=== PATIENT | male | born 1975 | race African-American/Black ===

== ENCOUNTER 2016-09-05 14:00 | Emergency (ER) | payer SELFPAY ==
[~2016-09-05] VITALS: Ht 180.3 cm; Wt 60.0 kg
[~2016-09-05 14:00] MED LIST: LISI-360 PO; LORTA5 PO; TRAM50TA PO
[2016-09-05 14:03] VITALS: BP 168/104; PULSE 84; RESP 16; TEMP 97.7; O2SAT 98
[2016-09-05] MEDS ORDERED: SODIUM CHLOR 0.9% 1000 ML INJ 1,000 ML IV SCH (14:58)
[2016-09-05] MEDS ORDERED: ONDANSETRON HCL 4 MG/2 ML VIAL IVP ONE (15:00)
[2016-09-05] MEDS ORDERED: SODIUM CHLORIDE 0.9% FLUSH 5 ML FLUSH IVF PRN (15:00)
[2016-09-05] MEDS ORDERED: MORPHINE SULFATE 4 MG/ML INJ IV PUSH ONE (15:00)
--- NOTE | 2016-09-05 15:53 | PD ---
HPI Chief Complaint: Abdominal Pain Time Seen by Provider: 14:52 Travel History International Travel<30 days: No Contact w/Intl Traveler<30days: No Traveled to known affect area: No History of Present Illness HPI 41-year-old male came to the emergency room with history of left lower quadrant pain. Patient had a hernia surgery done on that side about 8 months ago. Says the pain started 2 days ago and yesterday he had 2 episodes of vomiting. 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 Vital signs were stable otherwise. No history of diarrhea. Vitals are stable. [facility] Past Medical History Narrative Medical List of his past medical history is reviewed from the nursing note. Cancer: No Cardiovascular Problems: Yes (htn) Cerebrovascular Accident: No Diabetes: No Diminished Hearing: No Gastrointestinal Disorders: Yes (INGUINAL HERNIA A CHILD) Genitourinary: No Hypertension: Yes Implanted Vascular Access Dvce: No Musculoskeletal: Yes (RIGHT FA SX, LFT LEG SX) Neurologic: No Psychiatric: No Reproductive: No Respiratory: No Immunizations Current: No Myocardial Infarction: No Thyroid Disease: Yes Past Surgical History Abdominal Surgery: Yes (INGUINAL HERNIA REPAIR) Other Surgery: Yes (R FOREARM SX, L LEG SX,) Social History Alcohol Use: No (QUIT NOVEMBER) Tobacco Use: No ( ) Substance Use: Yes (MARIJUANA DAILY ECSTASY) Allergies-Medications (Allergen,Severity, Reaction): Coded Allergies: No Known Allergies (Verified , 02/18/16) Comments No known allergies. Reported Meds & Prescriptions Reported Meds & Active Scripts Active Ibuprofen 600 Mg Tab 600 Mg PO Q6H PRN Tramadol Hcl (Tramadol HCl) 50 Mg Tab 50 Mg PO Q4H PRN Hydrocodone/Acetaminophen 5 mg/325 mg 1 Tab 1-2 Tab PO Q4H PRN Reported Lisinopril 10 mg (Lisinopril) 10 Mg Tab 10 Mg PO DAILY Narrative Medication List of his home medications reviewed from the nursing note. Review of Systems Except as stated in HPI: all other systems reviewed are Neg Physical Exam Narrative GENERAL: Awake, alert, moderate distress SKIN: Warm and dry. HEAD: Atraumatic. Normocephalic. EYES: Pupils equal and round. No scleral icterus. No injection or drainage. ENT: No nasal bleeding or discharge. Mucous membranes pink and moist. NECK: Trachea midline. No JVD. CARDIOVASCULAR: Regular rate and rhythm. No murmur appreciated. RESPIRATORY: No accessory muscle use. Clear to auscultation. Breath sounds equal bilaterally. GASTROINTESTINAL: Abdomen soft, tender left lower quadrant mainly over the hernia scar to slightest touch, nondistended. Hepatic and splenic margins not palpable. MUSCULOSKELETAL: No obvious deformities. No clubbing. No cyanosis. No edema. NEUROLOGICAL: Awake and alert. No obvious cranial nerve deficits. Motor grossly within normal limits. Normal speech. PSYCHIATRIC: Appropriate mood and affect; insight and judgment normal. Data Data Last Documented VS Vital Signs Date Time Temp Pulse Resp B/P Pulse Ox O2 Delivery O2 Flow Rate FiO2 09/05/16 19:00 55 17 143/96 100 Room Air 09/05/16 14:03 97.7 Orders Complete Blood Count With Diff (09/05/16 14:58) Comprehensive Metabolic Panel (09/05/16 14:58) Lipase (09/05/16 14:58) Urinalysis - C+S If Indicated (09/05/16 14:58) Ct Abd/Pel W Iv Contrast(Rout) (09/05/16 14:58) Iv Access Insert/Monitor (09/05/16 14:58) Ecg Monitoring (09/05/16 14:58) Oximetry (09/05/16 14:58) Morphine Inj (Morphine Inj) (09/05/16 15:00) Ondansetron Inj (Zofran Inj) (09/05/16 15:00) Sodium Chlor 0.9% 1000 Ml Inj (Ns 1000 M (09/05/16 14:58) Sodium Chloride 0.9% Flush (Ns Flush) (09/05/16 15:00) Oral Contrast - Adult (09/05/16 15:04) Diatrizoate Liq ( Gastroview Liq) (09/05/16 17:12) Iohexol 350 Inj (Omnipaque 350 Inj) (09/05/16 18:49) Labs Laboratory Tests Test 09/05/16 09/05/16 15:30 15:55 Urine Color LIGHT-YELLOW Urine Turbidity CLEAR Urine pH 6.5 Urine Specific [place] 1.012 Urine Protein NEG mg/dL Urine Glucose (UA) NEG mg/dL Urine Ketones NEG mg/dL Urine Occult Blood NEG Urine Nitrite NEG Urine Bilirubin NEG Urine Urobilinogen LESS THAN 2.0 MG/DL Urine Leukocyte Esterase SMALL Urine RBC 1 /hpf Urine WBC 4 /hpf Urine Squamous Epithelial <1 /hpf Cells Urine Bacteria RARE /hpf Urine Mucus FEW /lpf Microscopic Urinalysis Comment CULT NOT INDICATED White Blood Count 4.9 TH/MM3 Red Blood Count 5.12 MIL/MM3 Hemoglobin 14.4 GM/DL Hematocrit 44.4 % Mean Corpuscular Volume 86.7 FL Mean Corpuscular Hemoglobin 28.2 PG Mean Corpuscular Hemoglobin 32.5 % Concent Red Cell Distribution Width 13.6 % Platelet Count 159 TH/MM3 Mean Platelet Volume 8.6 FL Neutrophils (%) (Auto) 47.3 % Lymphocytes (%) (Auto) 42.1 % Monocytes (%) (Auto) 8.4 % Eosinophils (%) (Auto) 1.1 % Basophils (%) (Auto) 1.1 % Neutrophils # (Auto) 2.3 TH/MM3 Lymphocytes # (Auto) 2.1 TH/MM3 Monocytes # (Auto) 0.4 TH/MM3 Eosinophils # (Auto) 0.1 TH/MM3 Basophils # (Auto) 0.1 TH/MM3 CBC Comment DIFF FINAL Differential Comment Sodium Level 141 MEQ/L Potassium Level 3.7 MEQ/L Chloride Level 110 MEQ/L Carbon Dioxide Level 22.2 MEQ/L Anion Gap 9 MEQ/L Blood Urea Nitrogen 12 MG/DL Creatinine 1.00 MG/DL Estimat Glomerular Filtration 101 ML/MIN Rate Random Glucose 87 MG/DL Calcium Level 9.0 MG/DL Total Bilirubin 0.6 MG/DL Aspartate Amino Transf 20 U/L (AST/SGOT) Alanine Aminotransferase 19 U/L (ALT/SGPT) Alkaline Phosphatase 60 U/L Total Protein 7.7 GM/DL Albumin 4.2 GM/DL Lipase 318 U/L [facility] Medical Decision Making Medical Screen Exam Complete: Yes Emergency Medical Condition: Yes Medical Record Reviewed: Yes Differential Diagnosis Recurrent inguinal hernia, diverticulitis, abdominal pain NOS Narrative Course 3:53 PM awaiting for the blood test results and the CAT scan to be done and resulted. Patient has been given pain medication and IV fluid bolus. 6:05 PM all the blood test results of back and within normal limit. Awaiting for the CAT scan to be done and resulted. 7:[address] scan report is back and essentially within normal limits with no acute changes. Procedures EKG Prior to Arrival: No Diagnosis Primary Impression: Abdominal wall strain Qualified Code: S39.011A - Abdominal wall strain, initial encounter Referrals: Primary Care Physician 1 week Additional Instructions: Do not lift heavy weight for the next one week. Take Motrin/Tylenol for the pain. Follow-up with your primary care. Med/Other Pt SpecificInfo: Prescription(s) given, No Change to Meds Scripts Ibuprofen 600 Mg [id number] Mg PO Q6H PRN (pain) #20 TAB Ref 0 Prov:Tyrell Delgado MD 09/05/16 Disposition: 01 DISCHARGE HOME Condition: Stable Tyrell Delgado MD Sep 05, 2016 15:53 Tyrell Delgado MD Sep 05, 2016 15:53
[2016-09-05 16:12] LABS: AUTOMATED NEUTROPHIL # 2.3 TH/MM3 (1.8-7.7); BASOPHIL # 0.1 TH/MM3 (0-0.2); BASOPHIL % 1.1 % (0.0-2.0); EOSINOPHIL # 0.1 TH/MM3 (0-0.4); EOSINOPHIL % 1.1 % (0.0-4.0); HEMATOCRIT 44.4 % (39.0-51.0); HEMO FLAGS DIFF FINAL; LYMPH % 42.1 % (9.0-44.0); LYMPHOCYTE # 2.1 TH/MM3 (1.0-4.8); MEAN CELL VOLUME 86.7 FL (80.0-100.0); MEAN CORPUSCULAR HEMOGLOBIN 28.2 PG (27.0-34.0); MEAN CORPUSCULAR HGB CONC 32.5 % (32.0-36.0); MONO % 8.4 % (0.0-8.0); NEUT % 47.3 % (16.0-70.0); PLATELET COUNT 159 TH/MM3 (150-450); RED BLOOD COUNT 5.12 MIL/MM3 (4.50-5.90); RED CELL DISTRIBUTION WIDTH 13.6 % (11.6-17.2); WHITE BLOOD COUNT 4.9 TH/MM3 (4.0-11.0)
[2016-09-05 16:21] LABS: BACTERIA, URINE RARE /hpf; BLOOD, URINE NEG (NEG); COMMENT (UR) CULT NOT INDICATED; CULTURE IF INDICATED CULT NOT INDICATED; GLUCOSE,URINE NEG (NEG); KETONE, URINE NEG (NEG); MUCUS URINE FEW /lpf (OCC); NITRITE,URINE NEG (NEG); PH, URINE 6.5 (5.0-8.5); SQUAMOUS EPITHELIAL CELL URINE <1 /hpf (0-5); URINE COLOR LIGHT-YELLOW (YELLW/STRAW)
[2016-09-05 16:29] LABS: ALT (GPT) 19 U/L (12-78); ANION GAP 9 MEQ/L (5-15); AST (GOT) 20 U/L (15-37); BICARBONATE 22.2 MEQ/L (21.0-32.0); BLOOD UREA NITROGEN 12 MG/DL (7-18); CHLORIDE 110 MEQ/L (98-107); GLOMERULAR FILTRATION RATE 101 ML/MIN (>89); POTASSIUM 3.7 MEQ/L (3.5-5.1); SODIUM (NA) 141 MEQ/L (136-145)
[2016-09-05 16:32] LABS: ALKALINE PHOSPHATASE 60 U/L (45-117); TOTAL BILIRUBIN ADULT 0.6 MG/DL (0.2-1.0)
[2016-09-05 17:00] VITALS: BP 152/86; PULSE 50; RESP 16; O2SAT 98
[2016-09-05 17:05] VITALS: O2SAT 98
[2016-09-05] MEDS ORDERED: DIATRIZOATE MEGLUM/DIATRIZOATE SOD 9 ML CUP ONE (17:12)
[2016-09-05] MEDS ORDERED: IOHEXOL 350 MG/ML 10 ML VIAL (for RAD DIAG) IV ONE (18:49)
[2016-09-05 19:00] VITALS: BP 143/96; PULSE 55; RESP 17; O2SAT 100
--- NOTE | 2016-09-05 19:13 | RADRPT ---
EXAM DATE/TIME: 09/05/2016 18:48 [facility] COMPARISON: CT ABDOMEN & PELVIS W CONTRAST, February 18, 2016, 19:09. CT ABDOMEN & PELVIS W CONTRAST, March 17, 2015, 11:01. INDICATIONS : Abdomen pain. IV CONTRAST: 80 cc Omnipaque 350 (iohexol) IV ORAL CONTRAST: Partial prescribed oral contrast ingested. RADIATION DOSE: 4.51 CTDIvol (mGy) MEDICAL HISTORY : Hernia, inguinal. SURGICAL HISTORY : Hernia repair. ENCOUNTER: Initial ACUITY: 1 day PAIN SCALE: 7/10 LOCATION: Bilateral abdomen. TECHNIQUE: Volumetric scanning of the abdomen and pelvis was performed. Using automated exposure control and ad justment of the mA and/or kV according to patient size, radiation dose was kept as low as reasonably achievable to obtain optimal diagnostic quality images. FINDINGS: LOWER LUNGS: The visualized lower lungs are clear. LIVER: Numerous hepatic cysts are again noted measuring in between 5 and 15 mm in size. No acute abnormality seen of the liver. CT appearance of the gallbladder within normal limits. SPLEEN: Normal size without lesion. PANCREAS: Within normal limits. KIDNEYS: Normal in size and shape. There is no mass, stone or hydronephrosis. ADRENAL GLANDS: Within normal limits. VASCULAR: There is no aortic aneurysm. BOWEL/MESENTERY: The stomach, small bowel, and colon demonstrate no acute abnormality. There is no free intraperitone al air or fluid. ABDOMINAL WALL: Within normal limits. RETROPERITONEUM: There is no lymphadenopathy. BLADDER: Posterolateral diverticula are again noted, measuring about 3.9 cm on the right and 2.9 cm on the lef t. REPRODUCTIVE: Within normal limits. INGUINAL: There is no lymphadenopathy or hernia. MUSCULOSKELETAL: Within normal limits for patient age. CONCLUSION: 1. No obstruction or acute inflammatory changes are demonstrated. 2. Numerous hepatic cysts not significantly changed. 3. Bladder diverticula unchanged. Anil Nelson MD on September 05, 2016 at 19:08 Board Certified Radiologist. This report was verified electronically.
[2016-09-05] MEDS ORDERED: IBUP-232 PO (19:17)
== END 2016-09-05 20:06 | disposition home or self-care (01) ==
LOC: NEPA 14:00
DX: S39.011A Strain of muscle, fascia and tendon of abdomen, initial encounter (principal); X50.9XXA Other and unspecified overexertion or strenuous movements or postures, initial encounter
CPT/HCPCS: 74177; 80053; 81001; 83690; 85025; 96361; 96374; 96375; 99284; J2270; J2405; J7030; Q9963; Q9967

== ENCOUNTER 2016-09-25 12:59 | Emergency (ER) | payer SELFPAY ==
[~2016-09-25] VITALS: Ht 180.3 cm; Wt 60.0 kg
[~2016-09-25 12:59] MED LIST changes: +IBUP-232 PO
[2016-09-25 13:01] VITALS: BP 145/91; PULSE 62; RESP 18; TEMP 98; O2SAT 99
[2016-09-25 13:28] VITALS: BP 153/78; PULSE 66; RESP 18; TEMP 98.3; O2SAT 99
[2016-09-25] MEDS ORDERED: LOPERAMIDE HCL 2 MG CAP PO ONE (14:15)
[2016-09-25] MEDS ORDERED: KETOROLAC TROMETHAMINE 60 MG/2 ML (IM) VIAL IM ONE (14:15)
[2016-09-25] MEDS ORDERED: LOPE2TAB3 PO (14:29)
[2016-09-25] MEDS ORDERED: NAPR500 PO (14:29)
--- NOTE | 2016-09-25 14:29 | PD ---
HPI Chief Complaint: Cold / Flu Symptoms Time Seen by Provider: 13:46 Travel History International Travel<30 days: No Contact w/Intl Traveler<30days: No Traveled to known affect area: No History of Present Illness HPI So 41-year-old man who presents to the emergency department complaining of "I don't feel good". He states for the past several days he's had body aches, nausea, loose stools, cough, subjective fevers. Is not going for the past 3-4 days. No sick contacts. Needs note for work. History Past Medical History Medical History: Denies Significant Hx Social History Alcohol Use: No (QUIT NOVEMBER) Tobacco Use: No ( ) Allergies-Medications (Allergen,Severity, Reaction): Coded Allergies: No Known Allergies (Verified , 02/18/16) Reported Meds & Prescriptions Reported Meds & Active Scripts Active Review of Systems Except as stated in HPI: all other systems reviewed are Neg Physical Exam Narrative GENERAL: Well-appearing 41-year-old man, no acute distress. SKIN: Warm and dry. HEAD: Atraumatic. Normocephalic. EYES: Pupils equal and round. No scleral icterus. No injection or drainage. ENT: No nasal bleeding or discharge. Mucous membranes pink and moist. TMs likely by cerumen, but no abnormality seen. Throat clear. NECK: Trachea midline. No JVD. No meningismus. CARDIOVASCULAR: Regular rate and rhythm. No murmur appreciated. RESPIRATORY: No accessory muscle use. Clear to auscultation. Breath sounds equal bilaterally. GASTROINTESTINAL: Abdomen soft, non-tender, nondistended. Hepatic and splenic margins not palpable. MUSCULOSKELETAL: No obvious deformities. No clubbing. No cyanosis. No edema. NEUROLOGICAL: Awake and alert. No obvious cranial nerve deficits. Motor grossly within normal limits. Normal speech. Data Data Last Documented VS Vital Signs Date Time Temp Pulse Resp B/P Pulse Ox O2 Delivery O2 Flow Rate FiO2 09/25/16 13:28 98.3 66 18 153/78 99 Room Air Orders Loperamide (Imodium) (09/25/16 14:15) Ketorolac Inj (Toradol Inj) (09/25/16 14:15) MDM Medical Decision Making Medical Screen Exam Complete: Yes Emergency Medical Condition: Yes Differential Diagnosis URI, viral syndrome, pneumonia, gastroenteritis Narrative Course Medical decision making 41-year-old male presents to the emergency department complaining of URI symptoms. Looks well. Needs note for work. Recommend supportive treatment. Diagnosis Primary Impression: URI (upper respiratory infection) Qualified Code: J06.9 - Viral upper respiratory tract infection Departure Forms: Tests/Procedures, Work Release Enter return to work date: Sep 27, 2016 Additional Instructions: Is loperamide as needed for diarrhea. Take Naprosyn as needed for fever or body aches. Return to the emergency department for any new or worsening symptoms. Med/Other Pt SpecificInfo: Prescription(s) given Scripts Naproxen (Naprosyn)500 Mg [id number] Mg PO BID PRN (PAIN SCALE 1 TO 10) #20 TAB Prov:Eric Hein MD 09/25/16 Loperamide 2 Mg Tab2 Mg PO DIRECTED PRN (DIARRHEA) #8 TAB One tablet after each loose stool. Not to exceed 8 tablets per day. Prov:Eric Hein MD 09/25/16 Disposition: 01 DISCHARGE HOME Condition: Stable Eric Hein MD Sep 25, 2016 14:29
== END 2016-09-25 15:10 | disposition home or self-care (01) ==
LOC: NEPE 12:59
DX: J06.9 Acute upper respiratory infection, unspecified (principal); B97.89 Other viral agents as the cause of diseases classified elsewhere; M79.1 Myalgia; R11.0 Nausea; R19.7 Diarrhea, unspecified; R05 Cough
CPT/HCPCS: 96372; 99283; J1885

== ENCOUNTER 2017-11-28 00:30 | Emergency (ER) | payer SELFPAY ==
[~2017-11-28] VITALS: Ht 177.8 cm; Wt 55.0 kg
[~2017-11-28 00:30] MED LIST changes: -IBUP-232 PO; -LISI-360 PO; +LOPE2TAB3 PO; -LORTA5 PO; +NAPR500 PO; -TRAM50TA PO
[2017-11-28 00:35] VITALS: BP 140/90; PULSE 70; RESP 14; TEMP 97.6; O2SAT 98
--- NOTE | 2017-11-28 02:01 | PD ---
HPI Chief Complaint: ENT Complaint Time Seen by Provider: 01:55 Travel History International Travel<30 days: No Contact w/Intl Traveler<30days: No Traveled to known affect area: No History of Present Illness HPI 42-year-old black male presents at [facility] with complaints of left ear pain over last few days. He states that he has not been sick. He has had no fever, chills, runny nose, cough or congestion. He started using peroxide to clean his ear when he started having some discomfort. He has not been using any Q-tips. Symptoms are mild. No alleviating factors. No exacerbating factors. History Past Medical Histgory Medical History: Denies Significant Hx Tetanus Vaccination: < 5 Years Hx Cancer: No Past Surgical History Surgical History: No Previous Surgery Social History Alcohol Use: No Tobacco Use: No ( ) Allergies-Medications (Allergen,Severity, Reaction): Coded Allergies: No Known Allergies (Verified Adverse Reaction, Unknown, 11/28/17) Reported Meds & Prescriptions Reported Meds & Active Scripts Active Naprosyn (Naproxen) 500 Mg Tab 500 Mg PO BID PRN Loperamide (Loperamide HCl) 2 Mg Tab 2 Mg PO DIRECTED PRN One tablet after each loose stool. Not to exceed 8 tablets per day. Review of Systems Except as stated in HPI: all other systems reviewed are Neg Physical Exam Narrative GENERAL: Well-developed, well-nourished in no acute distress. Nontoxic appearing. HEAD: Normocephalic, atraumatic. EYES: Pupils equal round and reactive. Extraocular motions intact. No scleral icterus. No injection or drainage. ENT: TMs clear without erythema. The external auditory canals clear. Nose: clear . Posterior pharynx is pink and moist. No tonsillar edema or exudate. Uvula midline. Airway patent. NECK: Trachea midline.Supple, nontender, moves head freely. No central bony tenderness or spasm. CARDIOVASCULAR: Regular rate and rhythm without murmurs, gallops, or rubs. RESPIRATORY: Clear to auscultation. Breath sounds equal bilaterally. No wheezes , rales, or rhonchi. GASTROINTESTINAL: Abdomen soft, non-tender, nondistended. No hepato-splenomegaly , or palpable masses. No guarding. EXTREMITIES: No clubbing, cyanosis, or edema. No joint tenderness, effusion, or edema noted. BACK: Nontender without deformity or crepitance. No flank tenderness. Data Data Last Documented VS Vital Signs Date Time Temp Pulse Resp B/P (MAP) Pulse Ox O2 Delivery O2 Flow Rate FiO2 11/28/17 00:35 97.6 70 14 140/90 (107) 98 Room Air MDM Medical Screen Exam Complete: Yes Emergency Medical Condition: No Differential Diagnosis Differential diagnosis: Otitis media, otitis externa, mastoiditis, URI Narrative Course A medical screening exam was performed: At the time of evaluation the presenting medical condition was determined not to be of an emergent nature. The patient was given the option of receiving additional care, but declined. Patient was given options for additional community resources from which to obtain care. The Patient Has Been advised to seek medical attention for their presenting complaint. The patient has been advised to return to the ER at any time if an emergent condition develops. Primary Impression: Encounter for medical screening examination Condition: Quan Montilla Nov 28, 2017 02:01
== END 2017-11-28 02:39 | disposition left against medical advice (07) ==
LOC: NEPD 00:30
DX: H92.02 Otalgia, left ear (principal)
CPT/HCPCS: 99281